=== PATIENT | female | born 1975 | race Caucasian/White ===

== ENCOUNTER 2017-04-23 14:52 | Emergency (ER) | payer OTHER | END 2017-04-23 16:30 | disposition home or self-care (01) | LOC: ER1 14:52 | DX: S61.412A Laceration without foreign body of left hand, initial encounter (principal); Z23 Encounter for immunization; F17.210 Nicotine dependence, cigarettes, uncomplicated; W25.XXXA Contact with sharp glass, initial encounter; Y92.219 Unspecified school as the place of occurrence of the external cause | CPT/HCPCS: 12001; 73130; 90471; 90714; 99283 ==

== ENCOUNTER 2017-07-21 12:43 | Emergency (ER) | payer OTHER | END 2017-07-21 14:35 | disposition home or self-care (01) | LOC: ER1 12:43 | DX: S10.91XA Abrasion of unspecified part of neck, initial encounter (principal); I10 Essential (primary) hypertension; F17.210 Nicotine dependence, cigarettes, uncomplicated; Z88.0 Allergy status to penicillin; X58.XXXA Exposure to other specified factors, initial encounter | CPT/HCPCS: 99282 ==

== ENCOUNTER 2021-06-12 07:24 | Emergency (ER) | payer OTHER ==
[~2021-06-12 07:24] MED LIST: BENADRYL 50MG C50 MG PO; FELDENE10 MG PO; FLONASE 0.05% N16 GM; OMNICEF 300 MG300 MG PO; PROVENTIL HFA6.7 GM INH; ZOFRAN4 MG PO; ZYRTEC10 M3 PO
[2021-06-12] MEDS ORDERED: CEPHALEXIN500 M1 PO (07:50)
[2021-06-12] MEDS ORDERED: BACTRIM DS TAB1 EACH PO (07:50)
[2021-07-30] MEDS ORDERED: PERCOCET 5/325 T1 EA PO (19:27)
[2021-07-30] MEDS ORDERED: DOXYCYCLINE HY100 MG PO (19:27)
== END 2021-06-12 07:53 | disposition home or self-care (01) ==
LOC: ER1 07:24
DX: L03.113 Cellulitis of right upper limb (principal); L03.116 Cellulitis of left lower limb; F17.200 Nicotine dependence, unspecified, uncomplicated; Z88.0 Allergy status to penicillin
CPT/HCPCS: 99283

== ENCOUNTER 2021-06-13 00:10 | Emergency (ER) | payer OTHER ==
[~2021-06-13 00:10] MED LIST changes: +BACTRIM DS TAB1 EACH PO; +CEPHALEXIN500 M1 PO
[2021-06-13 05:05] LABS: HEMOGLOBIN 15.6 gm/dl (12.3-15.3); RED BLOOD COUNT 5.2 M/UL (4.00-5.10); WHITE BLOOD COUNT 8.4 K/UL (4.5-11.0)
[2021-06-13 05:20] LABS: BUN/CREATININE RATIO 7 (0-10)
[2021-07-30] MEDS ORDERED: PERCOCET 5/325 T1 EA PO (19:27)
[2021-07-30] MEDS ORDERED: DOXYCYCLINE HY100 MG PO (19:27)
== END 2021-06-13 05:50 | disposition home or self-care (01) ==
LOC: ER1 00:10
PROVIDERS: Physician Assistant
DX: R21 Rash and other nonspecific skin eruption (principal); L03.113 Cellulitis of right upper limb; F17.210 Nicotine dependence, cigarettes, uncomplicated; I10 Essential (primary) hypertension
CPT/HCPCS: 80053; 83605; 85025; 85652; 86140; 99282

== ENCOUNTER 2021-06-27 21:23 | Emergency (ER) | payer OTHER ==
[2021-06-28 00:05] LABS: HEMOGLOBIN 14.9 gm/dl (12.3-15.3); RED BLOOD COUNT 4.75 M/UL (4.00-5.10); WHITE BLOOD COUNT 10.7 K/UL (4.5-11.0)
[2021-06-28 00:19] LABS: BUN/CREATININE RATIO 11 (0-10)
[2021-06-28] MEDS ORDERED: ZOFRAN ODT 4 MG4 MG PO (08:54)
[2021-06-28] MEDS ORDERED: ELIMITE 5% CREA60 GM TOP (08:54)
== END 2021-06-28 09:03 | disposition home or self-care (01) ==
LOC: ER1 21:23
PROVIDERS: Physician Assistant Medical
DX: R10.32 Left lower quadrant pain (principal); R11.2 Nausea with vomiting, unspecified; Z88.0 Allergy status to penicillin; Z88.6 Allergy status to analgesic agent; Z20.822 Contact with and (suspected) exposure to COVID-19
CPT/HCPCS: 80053; 81001; 85025; 99284; U0002

== ENCOUNTER 2021-07-04 23:18 | Emergency (ER) | payer OTHER ==
[~2021-07-04 23:18] MED LIST changes: +ELIMITE 5% CREA60 GM TOP; +ZOFRAN ODT 4 MG4 MG PO
[2021-07-05 00:28] LABS: HEMOGLOBIN 15.5 gm/dl (12.3-15.3); RED BLOOD COUNT 4.92 M/UL (4.00-5.10); WHITE BLOOD COUNT 9.8 K/UL (4.5-11.0)
[2021-07-05 00:46] LABS: BUN/CREATININE RATIO 5 (0-10)
== END 2021-07-05 04:30 | disposition home or self-care (01) ==
LOC: ER1 23:18
PROVIDERS: Physician Assistant
DX: S00.211A Abrasion of right eyelid and periocular area, initial encounter (principal); K21.9 Gastro-esophageal reflux disease without esophagitis; Z88.0 Allergy status to penicillin; F17.210 Nicotine dependence, cigarettes, uncomplicated; Y08.89XA Assault by other specified means, initial encounter; Z20.822 Contact with and (suspected) exposure to COVID-19
CPT/HCPCS: 71045; 73110; 73130; 80053; 83690; 83735; 83880; 85025; 99284; U0003

== ENCOUNTER 2021-07-27 16:15 | Emergency (ER) | payer OTHER ==
[2021-07-27 16:40] LABS: HEMOGLOBIN 17.4 gm/dl (12.3-15.3); RED BLOOD COUNT 5.45 M/UL (4.00-5.10); WHITE BLOOD COUNT 8.6 K/UL (4.5-11.0)
[2021-07-27 17:05] LABS: BUN/CREATININE RATIO 6 (0-10)
[2021-07-27] MEDS ORDERED: HYDROCODON-ACE1 EAC4 PO (19:40)
[2021-07-27 20:26] LABS: RED BLOOD COUNT 4.92 M/UL (4.00-5.10)
[2021-07-27 20:27] LABS: HEMOGLOBIN 14.9 gm/dl (12.3-15.3); WHITE BLOOD COUNT 13.5 K/UL (4.5-11.0)
[2021-07-30] MEDS ORDERED: DOXYCYCLINE HY100 MG PO (19:27)
[2021-07-30] MEDS ORDERED: PERCOCET 5/325 T1 EA PO (19:27)
== END 2021-07-27 21:00 | disposition home or self-care (01) ==
LOC: ER1 16:15
PROVIDERS: Student in an Organized Health Care Education/Training Program
DX: M54.9 Dorsalgia, unspecified (principal)
CPT/HCPCS: 70450; 71045; 72125; 72128; 72131; 73610; 73630; 80053; 85025; 93005; 96374; 96375; 99284; J2270; J2405; J3010

== ENCOUNTER 2021-08-01 20:15 | Inpatient (IN) | payer OTHER ==
[~2021-08-01] VITALS: Ht 162.6 cm; Wt 80.7 kg
[~2021-08-01 20:15] MED LIST changes: +DOXYCYCLINE HY100 MG PO; +HYDROCODON-ACE1 EAC4 PO; +PERCOCET 5/325 T1 EA PO
[2021-08-01 21:42] LABS: RED BLOOD COUNT 4.04 M/UL (4.00-5.10); WHITE BLOOD COUNT 13.7 K/UL (4.5-11.0)
[2021-08-01 21:43] LABS: HEMOGLOBIN 12.4 gm/dl (12.3-15.3)
[2021-08-01 22:01] LABS: BUN/CREATININE RATIO 22 (0-10)
[2021-08-02 06:24] LABS: HEMOGLOBIN 12.1 gm/dl (12.3-15.3); RED BLOOD COUNT 3.96 M/UL (4.00-5.10)
[2021-08-02 06:25] LABS: WHITE BLOOD COUNT 8.3 K/UL (4.5-11.0)
[2021-08-02 06:44] LABS: BUN/CREATININE RATIO 15 (0-10)
[2021-08-03 11:06] LABS: HEMOGLOBIN 12.6 gm/dl (12.3-15.3); RED BLOOD COUNT 4.09 M/UL (4.00-5.10); WHITE BLOOD COUNT 6.3 K/UL (4.5-11.0)
[2021-08-05 05:32] LABS: HEMOGLOBIN 11.3 gm/dl (12.3-15.3); RED BLOOD COUNT 3.74 M/UL (4.00-5.10)
[2021-08-05 05:43] LABS: WHITE BLOOD COUNT 8.4 K/UL (4.5-11.0)
[2021-08-05 05:58] LABS: BUN/CREATININE RATIO 10 (0-10)
[2021-08-05] MEDS ORDERED: BACTRIM DS TAB1 EACH PO (11:03)
[2021-08-05] MEDS ORDERED: KEFLEX CAP 250250 MG PO (11:03)
[2021-08-05] MEDS ORDERED: LISINOPRIL10 MG PO (11:04)
== END 2021-08-05 14:10 | disposition home or self-care (01) | DRG 872 ==
LOC: ER1 20:15 → CDU 22:51 → M/S 08-02 07:41
PROVIDERS: Internal Medicine; Nurse Practitioner Family; Physician Assistant Medical; ADMIT Internal Medicine
DX: A41.9 Sepsis, unspecified organism (principal); L03.114 Cellulitis of left upper limb; L98.498 Non-pressure chronic ulcer of skin of other sites with other specified severity; Z20.822 Contact with and (suspected) exposure to COVID-19; I10 Essential (primary) hypertension; F17.210 Nicotine dependence, cigarettes, uncomplicated; Z87.828 Personal history of other (healed) physical injury and trauma; Z88.0 Allergy status to penicillin; Z88.8 Allergy status to other drugs, medicaments and biological substances
CPT/HCPCS: 36415; 73080; 73201; 80048; 80053; 80202; 82550; 82553; 83605; 83874; 84484; 84702; 85025; 85027; 85652; 86140; 87040; 90471; 90715; 96372; 96374; 99283; 99285; J0696; J1650; J2270; J2405; J2550; J3370; J7070; Q9967; U0002

== ENCOUNTER 2022-02-18 16:24 | Emergency (ER) | payer OTHER ==
[~2022-02-18 16:24] MED LIST changes: +KEFLEX CAP 250250 MG PO; +LISINOPRIL10 MG PO
[2022-02-18 17:04] LABS: RED BLOOD COUNT 4.68 M/UL (4.00-5.10); WHITE BLOOD COUNT 7.9 K/UL (4.5-11.0)
[2022-02-18 17:38] LABS: BUN/CREATININE RATIO 10 (0-10)
[2022-02-18 17:49] LABS: ADENOVIRUS F 40/41 Not Detected (Negative); ASTROVIRUS Not Detected (Negative); CAMPYLOBACTER Not Detected (Negative); CRYPTOSPORIDIUM Not Detected (Negative); E.COLI 0157 Not Detected (Negative); ENTAMOEBA HISTOLYTICA Not Detected (Negative); ENTEROAGGREGATIVE E.COLI (EAEC Not Detected (Negative); ENTEROPATHOGENIC E.COLI (EPEC) Not Detected (Negative); ENTEROTOXIGENIC E.COLI (ETEC) Not Detected (Negative); GIARDIA LAMBLIA Not Detected (Negative); NOROVIRUS GI/GII Not Detected (Negative); PLESIOMONAS SHIGELLOIDES Not Detected (Negative); ROTOVIRUS A Not Detected (Negative); SALMONELLA Not Detected (Negative); SAPOVIRUS Not Detected (Negative); SHIG/ENTEROINVAS.ECOLI (EIEC) Not Detected (Negative); SHIGA-LIK TOX.PRO.E.COLI (STEC Not Detected (Negative); VIBRIO Not Detected (Negative); VIBRIO CHOLERAE Not Detected (Negative); YERSINIA ENTEROCOLITICA Not Detected (Negative)
[2022-02-18] MEDS ORDERED: BENTYL 20MG TAB20 MG PO (18:47)
[2022-02-18] MEDS ORDERED: BACTRIM DS TAB1 EACH PO (18:47)
[2022-02-19 08:10] LABS: CLOSTRIDIUM DIFFICILE TOX A/B Not Detected (Negative)
== END 2022-02-18 19:00 | disposition home or self-care (01) ==
LOC: ER1 16:24
PROVIDERS: Physician Assistant
DX: R10.9 Unspecified abdominal pain (principal); R10.812 Left upper quadrant abdominal tenderness; R07.9 Chest pain, unspecified; L02.416 Cutaneous abscess of left lower limb; R19.7 Diarrhea, unspecified; I10 Essential (primary) hypertension; F17.200 Nicotine dependence, unspecified, uncomplicated; Z88.0 Allergy status to penicillin
CPT/HCPCS: 71045; 80053; 81001; 82550; 82553; 83690; 84484; 85025; 87070; 87077; 87186; 87205; 87507; 93005; 96374; 99284; Q9967

== ENCOUNTER 2022-04-24 04:32 | Emergency (ER) | payer OTHER ==
[~2022-04-24 04:32] MED LIST changes: +BENTYL 20MG TAB20 MG PO
[2022-04-24 05:36] LABS: HEMOGLOBIN 15.9 gm/dl (12.3-15.3); RED BLOOD COUNT 5.17 M/UL (4.00-5.10); WHITE BLOOD COUNT 13.6 K/UL (4.5-11.0)
[2022-04-24 05:54] LABS: BUN/CREATININE RATIO 12 (0-10)
[2022-04-24] MEDS ORDERED: VIBRAMYCIN100 MG PO (09:50)
== END 2022-04-24 10:28 | disposition home or self-care (01) ==
LOC: ER1 04:32
PROVIDERS: Student in an Organized Health Care Education/Training Program
DX: L03.811 Cellulitis of head [any part, except face] (principal); R00.0 Tachycardia, unspecified; F17.200 Nicotine dependence, unspecified, uncomplicated
CPT/HCPCS: 71045; 80053; 80307; 81001; 83605; 85025; 87040; 99284; J0696